=== PATIENT | female | born 1950 | race Caucasian/White ===

== ENCOUNTER → 2020-04-26 10:30 | Outpatient (CLI) | payer MEDICARE, MEDICAID, SELFPAY ==
[2016-04-04 06:10] VITALS: BMI 29.9
[2020-04-26 11:14] VITALS: PULSE 60; PULSE 66; PULSE 81; PULSE 82; PULSE 84; PULSE 87; PULSE 89; O2SAT 93; O2SAT 94; O2SAT 95
--- NOTE | 2020-04-26 12:23 | WT_ITS ---
PSN 6 Minute Walk Test - 6 Minute Walk Test 6 Minute Walk Test: 6 Minute Walk Test PSN:6-Minute Walk Test Start: 04/26/20 11:13 Freq: Status: Active Protocol: RESP.6MINW Document 04/26/20 11:14 MALINI (Rec: 04/26/20 11:16 MALINI [id number]) 6 Minute Walk Test Date Performed 04/26/20 Time Performed 10:30 Height 4 ft 9 in Weight: 74.389 kg Weight in Pounds 164.[address]: Stuart Olvieros Assistive device used: None Pre-test Oxygen Delivery Method Room Air Pulse Ox (%) 93 Pulse Rate (60-100 beats/min) 60 Dyspnea Amparo Scale (0-10) 0.5 Exertion Amparo Scale (6-20) 6 1st minute Oxygen Delivery Method Room Air Pulse Ox (%) 93 Pulse Rate (60-100 beats/min) 81 2nd minute Oxygen Delivery Method Room Air Pulse Ox (%) 93 Pulse Rate (60-100 beats/min) 82 3rd minute Oxygen Delivery Method Room Air Pulse Ox (%) 94 Pulse Rate (60-100 beats/min) 89 Number of Rests Taken 1 4th minute Oxygen Delivery Method Room Air Pulse Ox (%) 94 Pulse Rate (60-100 beats/min) 84 5th minute Oxygen Delivery Method Room Air Pulse Ox (%) 94 Pulse Rate (60-100 beats/min) 87 6th minute Oxygen Delivery Method Room Air Pulse Ox (%) 93 Pulse Rate (60-100 beats/min) 89 Dyspnea Amparo Scale (0-10) 4 Exertion Amparo Scale (6-20) 14 Post-test Oxygen Delivery Method Room Air Pulse Ox (%) 95 Pulse Rate (60-100 beats/min) 66 Full Laps Walked 14 Partial Lap, Number of Tiles Walked 10 Total Distance Walked (ft) 836 - Interpretation Interpretation: The patient was able to ambulate 836 feet over the course of 6 minutes on room air with no assistive devices and one break. The patient experienced no signifi cant desaturation or tachycardia during testing. These findings are consistent with a musculoskeletal limitation exercise tolerance. - Recommendations Recommendations: No supplemental oxygen is indicated at this time.
== END ==
PROVIDERS: PCP Family Medicine; Referring Provider Internal Medicine Critical Care Medicine; Visit Provider Internal Medicine Critical Care Medicine
DX: R06.02 Shortness of breath (principal)
CPT/HCPCS: 94618

== ENCOUNTER → 2022-07-11 | Outpatient (CLI) | payer MEDICARE, MEDICAID, SELFPAY | END | disposition home or self-care (01) | LOC: PSN 09:34 | PROVIDERS: PCP Family Medicine; Referring Provider Nurse Practitioner Acute Care; Visit Provider Nurse Practitioner Acute Care | DX: R06.02 Shortness of breath (principal) | CPT/HCPCS: 94060; 94726; 94729 ==

== ENCOUNTER → 2022-07-13 | Outpatient (CLI) | payer MEDICARE, MEDICAID, SELFPAY ==
[2022-07-13 09:10] VITALS: PULSE 100; PULSE 103; PULSE 104; PULSE 75; PULSE 80; PULSE 97; O2SAT 92; O2SAT 93; O2SAT 94; O2SAT 95; O2SAT 96
--- NOTE | 2022-07-13 09:26 | CPS ---
Pt needed to stop and sit at the 5 minute lita due to legs being tired. Pt denied having any SOB and needed the rest for breathing when asked. Pt remained seated for last minute.
--- NOTE | 2022-07-13 10:31 | PFT ---
INTRODUCTION: The patient is a 71-year-old female that presents for pulmonary function studies secondary to a diagnosis of shortness of breath. Respiratory therapy reported good patient effort. Bronchodilators were used during testing. INTERPRETATION: Forced expiration spirometry demonstrates no evidence of a large airways obstructive ventilatory defect. There was no significant response to aerosolized bronchodilators. Spirograms are of good quality and plateau gradually indicating slow emptying of the lungs. Body plethysmography was performed and reveals lung volumes to be within normal limits. Diffusing capacity by single breath CO is also within normal limits. IMPRESSION: Grossly normal pulmonary function studies.
--- NOTE | 2022-07-14 11:08 | PCM.PSN.6M ---
PSN 6 Minute Walk Test 6 Minute Walk Test 6 Minute Walk Test: 6 Minute Walk Test PSN:6-Minute Walk Test Start: 07/13/22 09:23 Freq: Status: Active Protocol: RESP.6MINW Document 07/13/22 09:10 [facility] (Rec: 07/13/22 09:30 [facility] [id number]) 6 Minute Walk Test Date Performed 07/13/22 Time Performed 09:10 Height 5 ft 5 in Weight: 180 lb Weight in Pounds 180.[address]: IRAIDA Tinsley Assistive device used: Walker Pre-test Oxygen Delivery Method Room Air Pulse Ox (%) 93 Pulse Rate (60-100 beats/min) 75 Dyspnea Amparo Scale (0-10) 0 Exertion Amparo Scale (6-20) 6 1st minute Oxygen Delivery Method Room Air Pulse Ox (%) 93 Pulse Rate (60-100 beats/min) 100 2nd minute Oxygen Delivery Method Room Air Pulse Ox (%) 93 Pulse Rate (60-100 beats/min) 97 3rd minute Oxygen Delivery Method Room Air Pulse Ox (%) 94 Pulse Rate (60-100 beats/min) 100 4th minute Oxygen Delivery Method Room Air Pulse Ox (%) 95 Pulse Rate (60-100 beats/min) 104 H 5th minute Oxygen Delivery Method Room Air Pulse Ox (%) 92 Pulse Rate (60-100 beats/min) 104 H 6th minute Oxygen Delivery Method Room Air Pulse Ox (%) 94 Pulse Rate (60-100 beats/min) 103 H Dyspnea Amparo Scale (0-10) 0.5 Exertion Amparo Scale (6-20) 14 Post-test Oxygen Delivery Method Room Air Pulse Ox (%) 96 Pulse Rate (60-100 beats/min) 80 Full Laps Walked 10 Partial Lap, Number of Tiles Walked 0 Total Distance Walked (ft) 590 07/13/22 09:26 Cardiopulmonary Services by Aleena Mac Pt needed to stop and sit at the 5 minute lita due to legs being tired. Pt denied having any SOB and needed the rest for breathing when asked. Pt remained seated for last minute. Initialized on 07/13/22 09:26 - END OF NOTE Interpretation Interpretation: The patient ambulated 590 feet over the course of 6 minutes beginning on room air with the use of a walker. Pretesting oxygen saturation was noted to be 93% on room air. With ambulation, the rajiv oxygen saturation was 92%. Although there was evidence of impaired walk distance, there was no significant exertional oxygen desaturation. Recommendations Recommendations: There is no indication for the use of supplemental oxygen at this time.
== END | disposition home or self-care (01) ==
PROVIDERS: PCP Family Medicine; Referring Provider Nurse Practitioner Acute Care; Visit Provider Nurse Practitioner Acute Care
DX: R06.02 Shortness of breath (principal)
CPT/HCPCS: 94618